=== PATIENT | female | born 1965 | race Caucasian/White ===

== ENCOUNTER 2020-04-08 10:03 | Emergency (ER) | payer OTHER ==
[~2020-04-08] VITALS: Ht 162.6 cm; Wt 84.0 kg
[2020-04-08] MEDS ORDERED: KETOROLAC 60 MG/2 ML ONE (10:35)
--- NOTE | 2020-04-08 10:59 | NUR ---
PT SENT HERE FROM FOR LAB WORK, PT WITH C/O CHEST DISCOMFORT, REPRODUCABLE TO L CHEST AND ARMPIT AREA. NO SOB/DIZZINESS PT TO ALL MONITORS, ORDERS RECIEVED. PT MEDICATED PER MAR
[2020-04-08] MEDS ORDERED: KETOROLAC 30 MG/1 ML IM ONE (11:00)
[2020-04-08 11:16] LABS: BASOPHILS % (AUTO) 1 % (0-1); EOSINOPHILS % (AUTO) 3 % (1-7); LYMPHOCYTES % (AUTO) 18 % (22-44); MEAN CORPUSCULAR HEMOGLOBIN 32.9 pg (27.0-34.8); MEAN CORPUSCULAR HGB CONC 33.8 g/dL (32.4-35.8); MEAN PLATELET VOLUME 10.4 fL (7.4-10.4); MONOCYTES % (AUTO) 8 % (2-9); NEUTROPHILS % (AUTO) 70 % (42-75); PLATELET COUNT 218 x10^3/uL (130-400); RED BLOOD COUNT 3.56 x10^6/uL (3.82-5.3); RED CELL DISTRIBUTION WIDTH 14.6 % (9.6-15.2)
[2020-04-08 11:21] LABS: MD NO
[2020-04-08 11:29] LABS: ALBUMIN 4.3 g/dL (3.4-5.0); ANION GAP 5 mmol/L (5-15); CALCIUM 9.5 mg/dL (8.5-10.1); CHLORIDE 107 mmol/L (98-107)
[2020-04-08 11:37] LABS: ALANINE AMINOTRANSFERASE 54 U/L (12-78); ALKALINE PHOSPHATASE 92 U/L (45-117); BILIRUBIN,TOTAL 0.6 mg/dL (0.2-1.0); CREATININE 0.78 mg/dL (0.55-1.02); TOTAL PROTEIN 8.4 g/dL (6.4-8.2); TROPONIN I < 0.015 ng/mL (0.000-0.045)
--- NOTE | 2020-04-08 11:49 | NUR ---
TASK RN: PT SITTING UP COMFORTABLY, REPORTS PAIN IS BETTER 3/10. VSS.
[2020-04-08 12:55] VITALS: BP 143/87
== END 2020-04-08 13:08 | disposition home or self-care (01) ==
LOC: ED 10:50
DX: R06.02 Shortness of breath (principal); R07.89 Other chest pain; R05 Cough
CPT/HCPCS: 36415; 71045; 80053; 84484; 85025; 85379; 93005; 96372; 99285; J1885

== ENCOUNTER → 2020-05-05 | Outpatient (CLI) | payer OTHER ==
[~2020-05-05] MED LIST: OMNIPAQUE 350 MG/ML, 100ML BOTTLE ONE
== END | disposition home or self-care (01) ==
LOC: CFH 12:31
DX: K57.30 Diverticulosis of large intestine without perforation or abscess without bleeding (principal); Z90.710 Acquired absence of both cervix and uterus
CPT/HCPCS: 74177; Q9967